=== PATIENT | female | born 1985 | race Asian ===

== ENCOUNTER 2019-07-15 18:50 | Inpatient (IN) ==
[2019-07-15] MEDS ORDERED: KEFZOL 1 GM/D5W 1 GM/50 ML IVPB IV PRN (19:34)
[2019-07-15] MEDS ORDERED: PEPCID PO PRN (19:34)
[2019-07-15] MEDS ORDERED: ZOFRAN IV PRN (19:34)
[2019-07-15] MEDS ORDERED: REGLAN PO ONE (19:34)
[2019-07-15] MEDS ORDERED: PEPCID PO ONE (19:34)
[2019-07-15] MEDS ORDERED: BRETHINE SUBQ PRN (19:34)
[2019-07-15] MEDS ORDERED: PEPCID IV PRN (19:34)
[2019-07-15] MEDS ORDERED: AMBIEN PO PRN (19:34)
[2019-07-15] MEDS ORDERED: TYLENOL PO PRN (19:34)
[2019-07-15] MEDS ORDERED: STADOL IV PRN ×3 (19:34)
[2019-07-15] MEDS ORDERED: PITOCIN 30 UNITS/NS 30 UNIT/500 ML IV.SOLN IV SCH (19:45)
[2019-07-15 19:49] LABS: URINE SOURCE VOIDED
[2019-07-15 19:51] LABS: BILIRUBIN URINE NEGATIVE (NEGATIVE); BLOOD URINE SMALL (NEGATIVE); COLOR YELLOW; GLUCOSE URINE NEGATIVE (NEGATIVE); KETONE URINE NEGATIVE (NEGATIVE); LEUKOCYTES URINE LARGE (NEGATIVE); NITRITE URINE NEGATIVE (NEGATIVE); PROTEIN URINE TRACE mg/dL (NEGATIVE); SP GRAVITY URINE 1.022; TURBIDITY URINE HAZY (CLEAR); UROBILINOGEN URINE NORMAL (NORMAL)
[2019-07-15] MEDS ORDERED: AMPICILLIN 2 GM in NS 100 ML IV ONE (20:00)
[2019-07-15 20:11] LABS: UR AMPHETAMINES QUAL NONE DETECTED (NONE DETECT); UR BARBITUATES QUAL NONE DETECTED (NONE DETECT); UR BENZODIAZEPIN QUAL NONE DETECTED (NONE DETECT); UR CANNABINOIDS QUAL NONE DETECTED (NONE DETECT); UR COCAINE QUAL NONE DETECTED (NONE DETECT); UR METHADONE QUAL NONE DETECTED (NONE DETECT); UR OPIATES QUAL NONE DETECTED (NONE DETECT); UR OXYCODONE QUAL NONE DETECTED (NONE DETECT); UR PCP QUAL NONE DETECTED (NONE DETECT)
[2019-07-15] MEDS: LR 1,000 ML IV ONE (20:35)
[2019-07-15 20:46] LABS: BASO# 0.01 X1000 (0.0-0.2); BASO% 0.2 % (0.0-0.8); EOS# 0.07 X1000 (0.0-0.7); EOS% 1.2 % (0.0-10.0); HEMATOCRIT 35.9 % (37.0-47.0); HEMOGLOBIN 11.8 g/dL (12.0-16.0); IMM GRAN# 0.02 X1000 (0.0-0.04); IMM GRAN% 0.3 % (0.0-0.5); LYMPH# 1.48 X1000 (1.2-3.4); LYMPH% 24.5 % (20.5-51.1); MCH 28.3 PG (27-31); MCHC 32.9 g/dL (33-37); MCV 86.1 FL (81-99); MONO# 0.77 X1000 (0.11-0.59); MONO% 12.8 % (1.7-9.3); MPV 11.3 FL (7.4-10.4); NEUT# 3.68 X1000 (1.4-6.5); PLT 229 X1000 (130-400); RBC 4.17 XMIL (4.2-5.4); RDW 14.1 % (11.5-14.5); WBC 6.03 X1000 (4.8-10.8)
[2019-07-16] MEDS: AMPICILLIN 1 GM in NS 50 ML IV SCH ×4 (00:26→13:32)
[2019-07-16] MEDS ORDERED: CYTOTEC VAG ONE (03:00)
[2019-07-16] MEDS ORDERED: LR 1,000 ML IV SCH (05:30)
[2019-07-16] MEDS: LR 1,000 ML IV ONE (06:57)
[2019-07-16] MEDS ORDERED: XYLOCAINE-MPF 1% INJ PRN ×2 (07:16→13:01)
[2019-07-16] MEDS ORDERED: MINERAL OIL PO PRN ×2 (07:18→13:01)
--- NOTE | 2019-07-16 08:28 | HISTORY AND PHYSICAL ---
HISTORY OF PRESENT ILLNESS: Ms Olivo is a 33-year-old G5, P4-0-0-4 at 39 weeks and 6 days, who presents to Labor and Delivery for scheduled induction of labor. The patient is a late transfer of care from [facility], reports care received in [facility] in [place]. Dating ultrasound completed at [facility] at 38 weeks. The patient confirms due date from 38 week ultrasound correlates with due date established and country of [facility]. Denies any complications with current or prior pregnancies. Based on cultural and zoroastrianism status, patient desires female only provider. On presentation, the patient reports good movement. Reports regular contractions. Denies leakage of fluid or vaginal bleeding. PAST MEDICAL HISTORY: Noncontributory. PAST SURGICAL HISTORY: None. GYNECOLOGICAL HISTORY: Denies STD exposure. Menarche at approximately age 11. OBSTETRICAL HISTORY: G5, P4-0-0-4, 4 prior full-term vaginal deliveries. PREGNANCIES: 1. January 2014 at 40 weeks, spontaneous vaginal delivery. No complications. 2. January 2006 at 40 weeks, spontaneous vaginal delivery. No complication. 3. September 2006, 40 weeks, spontaneous vaginal delivery. No complication. 4. September 2011, spontaneous vaginal delivery. No complication. CURRENT MEDICATION: vitamins. ALLERGIES: No known drug allergies. FAMILY HISTORY: Noncontributory. SOCIAL HISTORY: Denies tobacco, alcohol, or drug use. PHYSICAL EXAMINATION: VITAL SIGNS: Temperature 96.6 degrees Fahrenheit, pulse rate 85, respiration rate 18, blood pressure 111/66, O2 saturation 98% on room air. Weight 240 pounds, height 5 feet 5 inches, body mass index 41.3 kg/m2. GENERAL: No acute distress. Alert, awake, oriented x3. RESPIRATORY: Clear to auscultation. Negative rhonchi, rales, or wheezing. CARDIOVASCULAR: Regular rate and rhythm. Positive S1, S2. ABDOMEN: Gravid. Fundal height 40 cm. Soft. Nontender to palpation. EXTREMITIES: Negative calf tenderness. There is +1 edema. VAGINAL EXAM: 1 cm dilated, 0 effacement, -3 station. ELECTRONIC MONITORING: Category 1 tracing, 135 beats per minute, moderate variability. Negative decelerations, positive accelerations. Bono, contractions occurring every 3 to 5 minutes. LABORATORY DATA: WBCs 6.03, hemoglobin 11.8, hematocrit 35.9, platelets 229,000. RPR nonreactive. LABS: Blood type A positive, antibody screen negative. Gonorrhea, Chlamydia by PCR urine negative. Rapid HIV nonreactive. Rubella screen immune. RPR nonreactive. Hepatitis B surface antigen nonreactive. ASSESSMENT: Ms. Olivo is a 33-year-old G5, P4-0-0-4 at 39 weeks and 6 days, who presents for scheduled induction of labor with need for female providers only based on zoroastrianism and cultural status. PLAN: 1. Admit to Labor and Delivery. 2. Obtain routine labor labs. 3. Induction of labor with Cytotec 25 mcg per vagina q.4 hours p.r.n. 4. GBS status unknown. We will treat prophylactically with ampicillin 2 g IV q.4 hours. 5. Continuous monitoring. 6. Pain management via IV pain medications and/or epidural p.r.n. 7. Patient counseled on risks, benefits, and alternatives to scheduled induction of labor. Risks not limited to infection, bleeding, injury, shoulder dystocia, vaginal laceration, emergency vacuum delivery, or emergency section. The patient understands the risks and agrees to procedure. 8. Estimated weight 8 pounds. 9. Anticipate spontaneous vaginal delivery.
[2019-07-16] MEDS ORDERED: PITOCIN IM PRN (13:01)
[2019-07-16] MEDS ORDERED: BOOSTRIX VACCINE IM ONE (13:01)
[2019-07-16] MEDS ORDERED: M-M-R II VACCINE SUBQ ONE (13:01)
[2019-07-16] MEDS ORDERED: BENADRYL IV PRN (13:01)
[2019-07-16] MEDS ORDERED: AMBIEN PO PRN (13:01)
[2019-07-16] MEDS ORDERED: CYTOTEC PO PRN (13:01)
[2019-07-16] MEDS ORDERED: HYDROXYZINE IM PRN (13:01)
[2019-07-16] MEDS ORDERED: ATARAX PO PRN (13:01)
[2019-07-16] MEDS ORDERED: BENADRYL PO PRN (13:01)
[2019-07-16] MEDS ORDERED: PERI MEDS (DERMOPLAST/NUPERCAINAL/TUCKS) MISC PRN (13:01)
[2019-07-16] MEDS ORDERED: PITOCIN 30 UNITS/NS 30 UNIT/500 ML IV.SOLN IV SCH (13:15)
[2019-07-16] MEDS ORDERED: PITOCIN 20 UNITS/NS 20 UNITS/1,000 ML IV.SOLN IV SCH (13:15)
[2019-07-16] MEDS: MOTRIN PO PRN (14:10)
--- NOTE | 2019-07-16 16:31 | OPERATIVE NOTE ---
PROCEDURE DATE: 07/16/2019 PROCEDURE: Spontaneous vaginal delivery. SURGEON: Dr. Sonia Menendez FERRYBOAT HELPER: None. DESCRIPTION OF PROCEDURE: Patient delivered a viable female infant weighing 7 pounds 10 ounces with of 9 and 10 at 1 and 5 minutes respectively. The vertex was delivered spontaneously over intact perineum. No nuchal cord was identified. The anterior shoulder delivered atraumatically with maternal expulsive efforts and downward traction. The posterior shoulder delivered with maternal expulsive efforts and upward traction. The remainder of the fetus delivered spontaneously. Upon delivery, fetus was placed on the patient's abdomen and assessed by waiting thermo processor staff. The cord was clamped and cut. Cord blood was obtained for analysis. The placenta was then delivered spontaneously intact with a three-vessel cord noted. To enhance uterine contractions IV oxytocin was administered. The cervix, vagina and perineum were inspected for lacerations. No lacerations were noted and good hemostasis maintained. ESTIMATED BLOOD LOSS: 300 mL.
[2019-07-16] MEDS: PERICOLACE PO SCH (21:18)
[2019-07-17 04:41] LABS: HEMATOCRIT 31.5 % (37.0-47.0); HEMOGLOBIN 10.2 g/dL (12.0-16.0); MCH 28.3 PG (27-31); MCHC 32.4 g/dL (33-37); MCV 87.5 FL (81-99); MPV 10.8 FL (7.4-10.4); RBC 3.6 XMIL (4.2-5.4); RDW 14.2 % (11.5-14.5); WBC 6.14 X1000 (4.8-10.8)
--- NOTE | 2019-07-17 07:34 | OB/GYN PROGRESS NOTE ---
- Subjective Patient doing well, breast feeding infant, no complaints OB Physical Exam Vital Signs - 8 hr 07/17/19 00:25 07/17/19 04:08 07/17/19 07:22 Temperature 97.4 F L 97.2 F L Pulse Rate 82 80 79 Respiratory Rate 18 16 18 Blood Pressure 100/51 92/50 113/49 O2 Sat by Pulse Oximetry 98 98 99 - CONSTITUTIONAL General Appearance: appears well, alert, no apparent distress - EYES Eyes: PERRL/EOMI - HEAD, EARS, NOSE, MOUTH & THROAT HENMT: normocephalic/atraumatic - NECK Neck: non-tender, full range of motion - RESPIRATORY Respiratory: no respiratory distress - CARDIOVASCULAR Cardiovascular: regular rate, rhythm - CHEST (BREASTS) Chest/Breast: deferred - GASTROINTESTINAL (ABDOMEN) Abdominal Exam: non tender, soft - GENITOURINARY Female Genitalia/Pelvic Exam: deferred - MUSCULOSKELETAL Back Exam: normal inspection Extremity: normal range of motion - SKIN Integumentary: normal color - NEUROLOGIC Neurologic: grossly normal - PSYCHIATRIC Psych/Mental Status: normal mood/affect, oriented x 3 Active Medications Generic Name Dose Route Start Last Admin Trade Name Freq PRN Reason Stop Dose Admin Acetaminophen 650 mg 07/15/19 19:34 Tylenol PO Q4-6H PRN PRN Headache Benzocaine 1 each 07/16/19 13:01 Elsa Meds (Dermoplast/Nupercainal/Tucks) MISC 3-4XDAY PRN PRN episiotomy/hemorrhoids Diphenhydramine HCl 25 mg 07/16/19 13:01 Benadryl PO Q4H PRN PRN Itching Famotidine 20 mg 07/15/19 19:34 Pepcid PO Q12H PRN PRN GI upset or indigestion Hydroxyzine HCl 50 mg 07/16/19 13:01 Atarax PO Q3-4H PRN PRN Nausea Hydroxyzine HCl 50 mg 07/16/19 13:01 Hydroxyzine IM Q3-4H PRN PRN Nausea Oxytocin/Sodium Chloride 20 units in 1,000 mls @ 0 mls/hr 07/16/19 13:15 07/16/19 13:28 Pitocin 20 Units/Ns IV 125 mls/hr .Q0M VIRIDIANA Administration As Directed Ibuprofen 800 mg 07/16/19 13:01 07/16/19 14:10 Motrin PO 800 mg Q8H PRN PRN Administration cramping Misoprostol 800 microgm 07/16/19 13:01 Cytotec PO PRN PRN Severe bleeding Oxytocin 20 unit 07/16/19 13:01 Pitocin IM PRN PRN Severe bleeding Senna/Docusate Sodium 1 each 07/16/19 21:00 07/16/19 21:18 Pericolace PO 1 each QHS VIRIDIANA Administration Zolpidem Tartrate 10 mg 07/16/19 13:01 Ambien PO HS PRN PRN Sleep Laboratory Results - last 24 hr 07/17/19 04:30 WBC 6.14 RBC 3.60 L Hgb 10.2 L Hct 31.5 L MCV 87.5 MCH 28.3 MCHC 32.4 L RDW Std Deviation 14.2 Plt Count 191 MPV 10.8 H OB Assessment & Plan (1) Normal course Status: Acute Plan: routine pp care
[2019-07-17] MEDS: MOTRIN PO PRN (21:09)
[2019-07-17] MEDS: PERICOLACE PO SCH (21:09)
--- NOTE | 2019-07-18 07:18 | DISCHARGE SUMMARY ---
ADMISSION DATE: 07/16/2019 DISCHARGE DATE: HISTORY OF PRESENT ILLNESS: This patient is a 33-year-old, 5, para 4, who was admitted at 38 and 6 for scheduled induction. Her course was totally unremarkable. She had transferred to [facility] from [facility] and had an estimated gestational age that corresponded with her dates. PAST MEDICAL HISTORY: Totally benign. She had no previous surgeries. She had 4 spontaneous vaginal deliveries without complications. ALLERGIES: No known allergies. LABORATORY DATA: Her lab work was unremarkable. HOSPITAL COURSE: The patient was admitted and delivered on July 16, of a full-term living female child, weight 7 pounds 10 ounces. Apgars were 9 and 10. Her course was totally unremarkable. She remained well and afebrile, and was the baby. The patient was discharged home in excellent condition with followup with her private MD in 4 weeks. She was discharged home on Motrin and vitamins, and her usual home medications. She verbalized understanding of all discharge instructions and all questions were answered. [facility]
[2019-07-18 07:53] VITALS: BP 122/60
[2019-07-18] MEDS ORDERED: FLU VACCINE IM ONE (08:30)
== END 2019-07-18 08:45 | disposition home or self-care (01) | DRG 807 ==
LOC: LD 18:50
PROVIDERS: ADMIT Obstetrics & Gynecology; ATTEND Obstetrics & Gynecology